=== PATIENT | female | born 2005 | race Caucasian/White ===

== ENCOUNTER 2025-02-11 06:45 | Outpatient (REF) | payer OTHER, SELFPAY ==
--- NOTE | ~2025-02-11 | US_ITS ---
CLINICAL HISTORY: PELVIC PAIN, PT HAS IUD US pelvis transabdominal and transvaginal Comparison: None Findings: Transvaginal and transabdominal scanning was performed. Anteverted uterus is 8.6 cm length. Normal myometrium. Endometrium 3.2 mm thickness. There is a IUD properly positioned within the endometrial canal. Right ovary 3.8 x 2.8 x 2 cm. Left ovary 3.2 x 1.6 x 1.7 cm. Normal color Doppler of both ovaries. No free fluid. IMPRESSION: Normal positioned IUD, no acute findings This document has been electronically signed by: Wil Escamilla MD on 02/12/2025 08:49:24
--- OUTSIDE RECORDS SUMMARY | 2025-02-11 06:47 | XMS_ITS | Clinical Summary ---
Author Organization [facility] Address [address] [place] [address] Care Team Providers Care Purler Name Role Phone Edmond Tsai MD Primary Care Provider + [phone] Allergies Active Allergy Reactions Criticality Noted Date Comments Dimenhydrinate Anaphylaxis High 07/06/2018 Mangoes 07/06/2018 Medications No known medications Social History Tobacco Use Types Packs/Day Years Used Date Smoking Tobacco: Never Assessed Comments Unknown Sex and Gender Information Value Date Recorded Sex Assigned at Not on file Legal Sex Female 10:37 PM EDT Gender Identity Not on file Sexual Orientation Not on file Last Filed Vital Signs Vital Sign Reading Time Taken Comments Blood Pressure 104/58 07/07/2018 8:24 AM EDT Pulse 68 07/07/2018 8:24 AM EDT Temperature 36.8 ??C (98.2 ??F) 07/07/2018 8:24 AM ED T Respiratory Rate 17 07/07/2018 8:24 AM EDT Oxygen Saturation 99% 07/07/2018 8:24 AM EDT Inhaled Oxygen Concentration - - Weight 65.8 kg (145 lb) 07/06/2018 10:39 PM EDT Height 162.6 cm (5' 4 ) 07/06/2018 10:39 PM EDT Body Mass Index 24.89 07/06/2018 10:39 PM EDT Plan of Treatment Not on file Insurance [facility] Care Teams Purler Relationship Specialty Start Date End Date Edmond Tsai MD [address] [place] [id number] PCP - General Pediatrics 07/06/18
--- OUTSIDE RECORDS SUMMARY | 2025-02-11 06:47 | XMS_ITS ---
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 Refill Desogestrel-Ethinyl Estradiol Tablet, 0.15-30 MG-MCG, Orally, 84 Tablet, 1 tablet, Once a day, 84 days, Refills=3 * true * Date:? Generated for Tash bliss/Mirian/Andrewitting on:?02/11/2025 06:47 AM EDT
--- OUTSIDE RECORDS SUMMARY | 2025-02-11 06:47 | XMS_ITS ---
Author Organization [facility] Address [address] [facility] [address] [place] [address] Care Team Providers Care Cop Name Role Phone aDhiana Gregory Unavailable [phone] Allergies Allergen (clinical drug ingredient) Drug/Non Drug Allergy documented on EMR Reaction Allergy Type Onset Date Status diphenhydramine Benadryl Anaphylaxis Drug Allergy Active REASON FOR VISIT IUD consult Medications Medication SIG (Take, Route, Frequency, Duration) Notes Start Date End Date Status lamoTRIgine 150 mg Active Prazosin HCl 2 MG 1 capsule at bedtime Orally Once a day Active Duloxicaine 30 & 4 MG & % as directed Combination Active L-Methylfolate Activ e Desogestrel-Ethinyl Estradiol 0.15-30 MG-MCG 1 tablet Orally Once a day for 84 days Dahiana Gregory 10/31/2023 12:55:20 PM EST > this is a pill switch 10/31/2023 Active Encounters Encounter Location Date Provider Diagnosis [facility]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 IUD consult. * Medical History:?Depression/ anxiety, Night terrors. * Sr Technical Sales Consultant History:?Menstrual History: ?Age of Onset?11 ?LMP:?10/27/2023 ?Time between periods:?21 to 32 days apart ?Duration:?2-7 days ?Pad/tampon use per day:?cramping, vomiting ???Sexual Activity/Contraception: ?Currently sexually active?Yes ???Last Preventive Screening Labs:?2022.?Denies H/O Last Mammogram Date (Historical).?Denies H/O Last Colon Cancer Screening Date: (Historical).?Denies H/O Last DEXA Scan: (Historical).? control (Historical)?condoms.?Gardasil Vaccine (Historical) ?Gardasil Vaccine?Yes ???Denies H/O Last Pap Smear/HPV Date (Historical).? * OB History:? History (GPA)?Total Pregnancies?0 * Surgical History:?oral . * Social History:?smoker - 5 a day. * Medications:?Taking Desogest rel-Ethinyl Estradiol 0.15-30 MG-MCG Tablet 1 tablet Orally Once a day , Notes to Pharmacist: Dahiana Gregory 10/31/2023 12:55:20 PM EST > this is a pill switch, Taking Duloxicaine(DULoxetine-Lidocaine) 30 & 4 MG & % Kit as directed Combination , Taking L-Methylfolate , Taking lamoTRIgine , Notes to Pharmacist: 150 mg, Taking Prazosin HCl 2 MG Capsule 1 capsule at bedtime Orally Once a day , Medication List reviewed and reconciled with the patient * Allergies:?Benadryl: Anaphyl axis. Objective: * Vitals:? Assessment: Plan: * Treatment: * Billing Information: * Visit Code:? * Procedure Codes:? * Electronic signature of Jennifer Gregory CNM on 02/11/2025 at 06:47 AM EDT Sign off status: Pending Visit Status:?R/S (Reschedul ed) * Provider:Klaudia Gregory CNM Date:? 4 Generated for Tash bliss/Mirian/Priti on:?02/11/2025 06:47 AM EDT
--- OUTSIDE RECORDS SUMMARY | 2025-02-11 06:47 | XMS_ITS | Patient Health Record ---
Author Organization [facility] Address [address] [facility] [address] [place] [address] Care Team Providers Care Charger Operator Name Role Phone Dahiana Gregory Unavailable [phone] Allergies Allergen (clinical drug ingredient) Drug/Non Drug Allergy documented on EMR Reaction Allergy Type Onset Date Status diphenhydramine Benadryl Anaphylaxis Drug Allergy Active Reason For Referral No Information Medications Medication SIG (Take, Route, Frequency, Duration) Notes Start Date End Date Status Prazosin HCl 2 MG 1 capsule at bedtime Orally Once a day Active L-Methylfolate Activ e lamoTRIgine 150 mg Active Duloxicaine 30 & 4 MG & % as directed Combination Active Desogestrel-Ethinyl Estradiol 0.15-30 MG-MCG 1 tablet Orally Once a day for 84 days 10/31/2023 Active Problems Problem Type SNOMED Code ICD Code Onset Dates Problem Status W/U Status Risk Notes Problem [id number] Dysmenorrhea (N94.6) Active confirmed Vital Signs Blood pressure diastolic 80 mm Hg 10/09/2024 Height 66 in 10/09/2024 Blood pressure systolic 124 mm Hg 10/09/2024 Encounters Encounter Location Date Provider Diagnosis [facility] END TRIMMER - [address] [place] [phone] 04/08/2024 Dahiana Gregory Dysmenorrhea N94.6 [facility] END TRIMMER -[facility] [address] [place] [phone] 07/08/2024 Dahiana Gregory Dysmenorrhea N94.6 [facility] END TRIMMER -[address] [address] 11/05/2024 Dahiana Gregory Dysmenorrhea N94.6 [facility] END TRIMMER - [address] [place] [phone] 10/09/2024 Dahiana Gregory Encounter for other contraceptive management Z30.8 Assessments Encounter Date Diagnosis (ICD Code) Assessment Notes Treatment Notes Treatment Clinical Notes Section Notes 04/08/2024 Dysmenorrhea (ICD-10 - N94.6) 07/08/2024 Dysmenorrhea (ICD-10 - N94.6) 10/09/2024 Encounter for other contraceptive management (ICD-10 - Z30.8) Total time was : 25 minutes 11/05/2024 Dysmenorrhea (ICD-10 - N94.6) Plan Of Treatment No Information Insurance Providers Payer Name Payer Address Payer Phone Subscriber Number Group Number Insured Name Patient Relationship to Insured Coverage Start Date Coverage End Date [employer] [address] [place], [place] [id number] Giulia Vernon Self - patient is the insured 3 Medical (General) History Medical History History ICD Code depression/anxiety night terrors Surgical History Surgery Date(Month/Year) oral
--- OUTSIDE RECORDS SUMMARY | 2025-02-11 06:47 | XMS_ITS | Referral Summary ---
Author Organization [facility] Address [address] [place] [address] Phone Care Team Providers Care Metal Die Finisher Name Role Phone Unavailable Primary Care Provider Unavailabl e Social History Tobacco Use Types Packs/Day Years Used Date Smoking Tobacco: Never Assessed Comments Unknown Sex and Gender Information Value Date Recorded Sex Assigned at Not on file Legal Sex Female 2:09 AM EST Gender Identity Not on file Sexual Orientation Not on file Last Filed Vital Signs Vital Sign Reading Time Taken Comments Blood Pressure 110/74 12/06/2018 12:00 AM EST Pulse - - Temperature - - Respiratory Rate - - Oxygen Saturation - - Inhaled Oxygen Concentration - - Weight 63.8 kg (140 lb 10.5 oz) 019 12:00 AM EST Height - - Body Mass Index - - Plan of Treatment Not on file
--- OUTSIDE RECORDS SUMMARY | 2025-02-11 06:47 | XMS_ITS | Clinical Summary ---
Author Organization [facility] Address [address] [place] [address] Phone Care Team Providers Care Head Of Integrated Media Name Role Phone Unavailable Primary Care Provider [...]
== END 2025-02-11 06:46 | disposition home or self-care (01) ==
LOC: HO.UMASIMG 06:45
PROVIDERS: Visit Provider Nurse Practitioner Women's Health
DX: Z30.431 Encounter for routine checking of intrauterine contraceptive device (principal)
CPT/HCPCS: 76830; 76856

== ENCOUNTER → 2025-02-11 11:30 | Outpatient (BNV) | payer OTHER, SELFPAY | PROVIDERS: Visit Provider Radiology Diagnostic Radiology | DX: R10.2 Pelvic and perineal pain (principal); Z97.5 Presence of (intrauterine) contraceptive device | CPT/HCPCS: 76830; 76856 ==